=== PATIENT | female | born 1990 ===

== ENCOUNTER → 2018-02-16 | Day surgery (SDC) | payer OTHER ==
[~2018-02-16] MED LIST: AMOX1TAB5 PO; CEFADROXIL500 MG PO; FLAGYL375 MG PO; ROBITUSSIN100 MG/53 PO
== END | disposition home or self-care (01) ==
LOC: ADM 02-09 14:30 → CIR.AMB 07:00
DX: N84.0 Polyp of corpus uteri (principal)